=== PATIENT | female | born 1995 | race Caucasian/White ===

== ENCOUNTER 2020-05-28 16:47 | Emergency (ER) | payer BC, MEDICAID ==
--- NOTE | 2020-05-28 19:42 | ER Document Report ---
ED General - General Chief Complaint: Back Pain Stated Complaint: BACK PAIN/PAINFUL URINATION - HPI Notes: Chief Complaint: Right flank pain, dysuria Historian: History obtained from patient HPI: This is a 24-year-old female presents to the ER complaining of dysuria and right flank pain x4 days. She has taken Azo which is helping her symptoms. She denies fevers, nausea vomiting, abdominal pain. Denies vaginal discharge or concern for STD. No treatments tried. No history of kidney stones. later pt does admit to some intermittent chills. ROS: Constitutional: intermittent chills HEENT: no LEACH, sore throat, or vision changes. CV: no chest pain or palpitations. Resp: no cough or SOB. GI: no abdominal pain. positive right CVAT : dysuria MSK: right sided back pain. no joint swelling/redness. Skin: no rashes or itching. Neuro: no seizures, weakness, numbness, or confusion. Hematological: no ecchymosis or easy bleeding. Endocrine: no polyuria/polydipsia, no heat/cold intolerance. Psych: no SI/HI, AH/VH or memory loss. PMHx: Reviewed and agree as charted by RN. PSHx: Reviewed and agree as charted by RN. SOCHx: Reviewed and agree as charted by RN. FHX: No significant familial comorbid conditions directly related to patient co mplaint Current Medications: Reviewed and agree with the patient medications as charted by the RN. Allergies: Reviewed and agree with the listed allergies as charted by the RN Physical Exam: Vitals: Reviewed in chart as documented by RN. General: Alert and in NAD. Head: Normocephalic; atraumatic Eyes: PERRLA, Conjunctivae clear sclerae non-icteric bilat ENT: no soft palate swelling or uvular deviation Neck: trachea midline, no unilateral swelling/tenderness/lymphadenopathy CV: RRR, no M/R/G; symmetric distal pulses Resp: respirations even and unlabored, CTA bilat. GI: abd soft and nondistended. NTTP. normal BS. no masses/HSM. right CVAT MSK: FROM of all extremities. No midline CTL spine tenderness/deformity Skin: warm, moist, good turgor. no rash/lesions Neuro: Alert and oriented X 4. following CN 2-12 intact. no unilateral weakness/numbness Psych: No SI/HI or AH/VH. Medical Decision-Making: Differential includes pyelonephritis, UTI, cystitis, STD, PID, BV, nephrolithiasis, ureterolithiasis, ectopic , IUP, ovarian torsion, ovarian cyst, etc. suspect pt is developing right pyelonephritis, temp 99.5 with right CVAT. pending UA at this time but may be obscured due to Azo use. pt reports have a long hx of UTIs and similar kidney infections about 5 times a year. likely will give IM rocephin and d/c w/ keflex. strict return factors discussed. - Related Data Allergies/Adverse Reactions: No Known Allergies Allergy (Unverified 05/28/20 20:03) Past Medical History - Social History Smoking Status: Never Smoker Chew tobacco use (# tins/day): No Frequency of alcohol use: None Family History: Reviewed & Not Pertinent Past Surgical History: Reports: Hx Section Physical Exam - Vital signs Vitals: Temp Pulse Resp BP Pulse Ox 99.5 F 106 H 16 129/70 H 99 05/28/20 16:51 05/28/20 16:51 05/28/20 16:51 05/28/20 16:51 05/28/20 16:51 Course - Vital Signs Vital signs: Temp Pulse Resp BP Pulse Ox 99.5 F 109 H 16 112/56 L 97 05/28/20 21:51 05/28/20 21:51 05/28/20 21:51 05/28/20 21:51 05/28/20 21:51 - Laboratory Results Laboratory Results Interpreted: 05/28/20 19:50 Urine Protein 100 H Urine Blood MODERATE H Urine Nitrite POSITIVE H Ur Leukocyte Esterase MODERATE H Critical Laboratory Results Reviewed: No Critical Results - Radiology Results Critical Radiology Results Reviewed: No Critical Results Discharge - Discharge Clinical Impression: Complicated UTI (urinary tract infection) Condition: Stable Disposition: HOME, SELF-CARE Instructions: Urinary Tract Infection ([facility]) Additional Instructions: Follow all printed instructions. Take medications as prescribed. Follow up with your doctor in 2-3 days for re-check. Return to the ER if your condition worsens. Prescriptions: Cephalexin Monohydrate [Keflex 500 mg Capsule] 500 mg PO Q6H 10 Days #40 capsule
[2020-05-28 20:27] LABS: APPEARANCE,URINE SLIGHTLY-CLOUDY; BILIRUBIN,URINE NEGATIVE (NEGATIVE); COLOR,URINE YELLOW; GLUCOSE, URINE NEGATIVE (NEGATIVE); KETONES,URINE NEGATIVE (NEGATIVE); LEUKOCYTE ESTERASE,URINE MODERATE (NEGATIVE); NITRITE,URINE POSITIVE (NEGATIVE); PROTEIN,URINE 100 mg/dL (NEGATIVE); URINE SPECIFIC GRAVITY 1.013; UROBILINOGEN,URINE NEGATIVE mg/dL (<2.0)
[2020-05-28 21:52] VITALS: BP 112/56
[2020-05-28] MEDS ORDERED: CEFTRIAXONE INJ 1000 MG VIAL IM ONE (21:56)
[2020-05-28] MEDS ORDERED: LIDOCAINE 1% INJ-PF (10 MG/ML) 30 ML SDV NEB ONE (21:56)
== END 2020-05-28 23:28 | disposition home or self-care (01) ==
LOC: ER 16:47
DX: N39.0 Urinary tract infection, site not specified (principal); R30.0 Dysuria; R10.9 Unspecified abdominal pain
CPT/HCPCS: 99284; 96372; 81025; 81001; J3490; J0696